=== PATIENT | female | born 1955 | race Caucasian/White ===

== ENCOUNTER 2025-01-10 10:51 | Day surgery (SDC) | payer MEDICARE, MEDICAID ==
[2025-01-09 11:16] LABS: MEAN PLATELET VOLUME 6.6 FL (7.4-10.4); RED CELL DISTRIBUTION WIDTH 18.9 % (11.5-14.5)
[2025-01-09 11:27] LABS: CREATININE 0.69 MG/DL (0.40-0.90); TOTAL CARBON DIOXIDE 29.1 MMOL/L (24-32); eGFR 84 ML/MIN
[2025-01-09 11:32] LABS: APTT 32 SECONDS (22-32); INR 1.2 INR
[2025-01-09 11:36] LABS: PLATELET ESTIMATE NORMAL
[~2025-01-10] VITALS: Ht 160 cm; Wt 52.1 kg
[2025-01-10] VITALS (9 sets, daily range): BP systolic 102–137; BP diastolic 50–91; PULSE 94–102; RESP 14–16; TEMP 97–98.6; O2SAT 92–97
[~2025-01-10 10:51] MED LIST: ALBU18HF2 INH; ASPI-1265 PO; CARV3.122 PO; CHOL100044 PO; FLUT16SP2 BOTHNARES; FLUT1AER INH; FURO-150 PO; GABA-532 PO; HYDR-4353 PO; LISI5TAB22 PO; LORA10TA7 PO; NITR0.4T48 SL; POTA10CA95 PO; PRAV10TA12 PO; RANI150C4 PO
--- NOTE | 2025-01-10 11:46 | ELECTROCARDIOGRAPH REPORT ---
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 RENETTA Werner Measurements Intervals [place] Rate: 93 P: 81 MI: 205 QRS: 24 QRSD: 97 T: -86 QT: 377 QTc: 469 Interpretive Statements Sinus rhythm LVH with secondary repolarization abnormality Anterior ST elevation, probably due to LVH Electronically Signed On 01-10-2025 19:48:[address] RENETTA Werner Please click the below link to view image of tracing.
[2025-01-10] MEDS ORDERED: SOTA80TA73 PO (12:28)
[2025-01-10] MEDS ORDERED: FAMO20TA8 PO (12:28)
[2025-01-10] MEDS ORDERED: ATOR40TA PO (12:28)
[2025-01-10] MEDS ORDERED: ALEN70TA60 PO (12:28)
[2025-01-10] MEDS ORDERED: DAPA5TAB PO (12:28)
[2025-01-10] MEDS ORDERED: LOSA-415 PO (12:28)
[2025-01-10] MEDS ORDERED: iohexol 350 MG/ML 50ML vial IV ONE (12:46)
[2025-01-10] MEDS ORDERED: midazolam 1 mg/ML 2ml injection ONE (12:46)
[2025-01-10] MEDS ORDERED: verapamil 2.5 mg/ml inj IV ONE (12:46)
[2025-01-10] MEDS ORDERED: LIDOcaine 1% 30ml preserv. free vial ONE (12:46)
[2025-01-10] MEDS ORDERED: fentaNYL/PF 50MCG/1 ML 2ML syringe ONE (12:46)
[2025-01-10] MEDS ORDERED: heparin 1,000unit/ml 10ml vial 10 ML ONE (12:46)
[2025-01-10] MEDS ORDERED: nitroGLYCERIN 500mcg/5mL D5W 5 ML IV ONE ×2 (12:47→14:06)
[2025-01-10 15:30] LABS: ISTAT HGB ART 10.2 g/dl (12.0-16.0); ISTAT Hct ART 30 %PCV (35-45); ISTAT O2 SATURATION ARTERIAL 95 % (95-98); ISTAT SOURCE ART
[2025-01-10] MEDS ORDERED: normal saline 1000ml 1,000 ML IV SCH (16:00)
--- NOTE | 2025-01-10 22:20 | CARDIOLOGY REPORT ---
DATE OF SERVICE: 01/10/2025 DICTATING PHYSICIAN: RENETTA Gaitan MD Cardiac Catheterization Report PRIMARY PHYSICIAN: DANIEL Strong, in [facility] [place]. [employer]W MEMBER: RENETTA Gaitan MD. GENDER: Female. AGE: 69. HEIGHT: 160 cm. WEIGHT: 52.1 kg. BODY SURFACE AREA: 1.53 m2. INDICATION: The patient is a 69-year-old female with history of nonobstructive CAD, COPD, hyperlipidemia, hypertension, mitral and tricuspid regurgitation, cardiomyopathy and chronic systolic heart failure. The patient has been having progressively increasing shortness of breath. Her echocardiogram from 01/01/2025 showed EF 10-15%, [id number] AR and PASP of 50 mmHg. This is a significant decline from her prior echocardiogram, and when she had coronary angiography at [facility] back on 12/06, her ejection fraction was 66%. In view of decline in her CHF, the patient was started on optimal medical therapy/GDMT, including carvedilol, Farxiga, losartan and spironolactone, and the patient prefers to have a definite coronary angiography. Risks, benefits and alternative options were discussed. Informed consent was obtained. The patient's other comorbidities include GERD or scoliosis. The patient lives in [place] with her daughter. DESCRIPTION OF PROCEDURE: The patient underwent left heart catheterization with right radial approach, 6-[place] right radial sheath. Postprocedure access site hemostasis with right radial band. The patient had right heart catheterization with right antecubital approach and 6-Sing[place]an sheath. Postprocedure access site hemostasis was obtained with manual compression. The patient tolerated the procedure well. COMPLICATIONS: None. PROCEDURES DONE: 1. Ultrasound-guided right radial artery visualization and access. 2. Right heart catheterization. 3. Left heart catheterization. 4. LVG. 5. Coronary cineangiography. 6. Conscious sedation of 30 minutes. FINDINGS: HEMODYNAMICS: Aortic systolic 124, diastolic 69, mean 91 mmHg. LVEDP of 14 mmHg with no significant gradient across the aortic valve. Right atrial mean 0. RV systolic 16 mmHg. PA 17/8 mmHg. Pulmonary capillary wedge pressure 4 mmHg. Cardiac output by thermodilution measured is 4.36 L/min. Cardiac index was 2.85 L/min/m2. LEFT VENTRICULOGRAM: Overall, left ventricular systolic function is severely impaired with LV ejection fraction of 20-25%. CORONARY CINEANGIOGRAPHY: Left main coronary artery engaged with JL4 catheter with right radial approach shows large caliber with minimal luminal irregularities. LAD is a medium-caliber vessel arising at the bifurcation of the left main coronary artery and courses through the anterior intraventricular groove and ends up by wrapping around the apex. There is large transapical vessels with minimal luminal irregularities. Diagonal is 2.75 mm with mild luminal irregularities. Circumflex artery is a medium-caliber vessel arising at the bifurcation of the left main coronary artery, predominantly continues as a principal obtuse marginal branch of 2.75 mm in diameter, divides into two divisions with mild luminal irregularities. Right coronary artery is a medium-caliber vessel arising from the right aortic sinus, courses the right AV groove, ends at the posterior crux by dividing into PDA and a posterolateral branch. IMPRESSION: A 69-year-old female with left ventricular ejection fraction of 20-25%. Severe left ventricular global hypokinesia present. Left ventricular end-diastolic pressure of 14 mmHg with no significant gradient across the aortic valve. Pulmonary capillary wedge pressure of 4 mmHg. Pulmonary artery systolic pressure of 17 mmHg. Left main normal. LAD and diagonal with minimal disease. Circumflex marginal with minimal disease. Dominant artery with minimal disease. RECOMMENDATIONS: Continue aggressive coronary risk factor modifications, namely low-fat/low-cholesterol diet, maintaining ideal body weight, keeping LDL under 70 mg/dL, and regular exercise program. Optimize medical therapy with the use of GDMT including carvedilol, losartan, spironolactone and Farxiga. RENETTA Gaitan MD TID: [id number] RECEIPT: [id number] BC/MAURICE cc: Dr. Strong
[2025-01-11 06:33] LABS: ISTAT HGB MIX 10.2 g/dl (12.0-16.0); ISTAT Hct MIX 30 %PCV (35-45); ISTAT O2 SATURATION MIX VENOUS 61 % (60-80); ISTAT SOURCE VEN
== END 2025-01-10 20:00 | disposition home or self-care (01) ==
LOC: SSTAY O 10:51
PROVIDERS: ATTEND Internal Medicine Cardiovascular Disease
DX: R94.39 Abnormal result of other cardiovascular function study (principal); I25.10 Atherosclerotic heart disease of native coronary artery without angina pectoris; I11.0 Hypertensive heart disease with heart failure; I50.22 Chronic systolic (congestive) heart failure; I42.0 Dilated cardiomyopathy; E78.5 Hyperlipidemia, unspecified; J44.9 Chronic obstructive pulmonary disease, unspecified; K21.9 Gastro-esophageal reflux disease without esophagitis; I08.3 Combined rheumatic disorders of mitral, aortic and tricuspid valves; M41.80 Other forms of scoliosis, site unspecified; Z79.82 Long term (current) use of aspirin; Z79.899 Other long term (current) drug therapy; Z98.890 Other specified postprocedural states; Z82.49 Family history of ischemic heart disease and other diseases of the circulatory system; Z83.3 Family history of diabetes mellitus; Z80.9 Family history of malignant neoplasm, unspecified; Z87.891 Personal history of nicotine dependence; Z88.5 Allergy status to narcotic agent; Z88.6 Allergy status to analgesic agent; Z88.8 Allergy status to other drugs, medicaments and biological substances
CPT/HCPCS: 80048; 82803; 85014; 85025; 85610; 85730; 93005; 93460; 99152; 99153; A6258; A6402; C1725; C1751; C1894; J1644; J2003; J2250; J3010; J3490; J7030; Q0163; Q9967; Z7610; 76937; 85008